=== PATIENT | male | born 1985 ===

== ENCOUNTER 2018-06-09 06:09 | Emergency (ER) | payer SELFPAY ==
--- NOTE | 2018-06-09 06:29 | ED PDOC ---
HPI: Psych/Substance Abuse Time Seen by Provider: 06/09/18 06:12 Chief Complaint (Nursing): Psychiatric Evaluation Chief Complaint (Provider): EDP, Possible Substance Abuse ED Caveat: Uncooperative History Per: EMS, Other ([place] [facility]) History/Exam Limitations: other (uncooperative) Onset/Duration Of Symptoms: Mins (officer captain) Current Symptoms Are (Timing): Still Present Additional Complaint(s): 32 year old male presents to the ED via EMS accompanied by PD for evaluation of possible substance abuse and being an EDP. Patient is uncooperative, yelling in room, and will give no history. Secondary to agitation, four point restraints were applied immediately for safety of patient and staff. MEDICATION was administered to relieve agitation. PMD: unobtainable Past Medical History Reviewed: Unable To Obtain Vital Signs: Last Vital Signs Temp Pulse 142 H 06/09/18 06:26 Resp 22 06/09/18 06:26 BP 113/62 06/09/18 06:26 Pulse Ox 96 06/09/18 06:26 - Family History Family History: States: Unknown Family Hx - Allergies Allergies/Adverse Reactions: Allergies Allergy/AdvReac Type Severity Reaction Status Date / Time No Known Allergies Allergy Verified 06/09/18 08:02 Review of Systems Review Of Systems: ROS cannot be obtained secondary to pt's inabilty to answer questions. Physical Exam - Reviewed Nursing Documentation Reviewed: Yes Vital Signs Reviewed: Yes - Physical Exam Appears: Positive for: No Acute Distress Skin: Positive for: Normal Color Eye Exam: Positive for: Normal appearance ENT: Positive for: Other (extremely dry lips) Neck: Positive for: Normal Cardiovascular/Chest: Positive for: Regular Rate, Rhythm Respiratory: Positive for: Normal Breath Sounds. Negative for: Respiratory Distress Gastrointestinal/Abdominal: Positive for: Normal Exam Extremity: Positive for: Normal ROM Neurologic/Psych: Positive for: Alert, Mood/Affect (odd). Negative for: Oriented - Laboratory Results Result Diagrams: 06/09/18 07:20 06/09/18 07:20 - ECG ECG Rhythm: Positive for: Normal QRS, Normal ST Segment, Sinus Rhythm (normal) O2 Sat by Pulse Oximetry: 96 (RA) Pulse Ox Interpretation: Normal Medical Decision Making Medical Decision Making: Time: 617 Initial Impression: EDP, possible substance abuse Initial Plan: --Acetaminophen --Alcohol serum --BMP --LFT --Drug screen --Salicylate --CBC with differential --Ativan 2mg IM --Haldol 5mg IM --Restraints for safety of patient and ED staff --Urinalysis 0700 Patient care endorsed from this provider to Dr. Hodges pending workup and reevaluation. Scribe Attestation: Documented by Marichuy Rascon acting as a scribe for Loida Dempsey MD. Provider Scribe Attestation: All medical record entries made by the Scribe were at my direction and personally dictated by me. I have reviewed the chart and agree that the record accurately reflects my personal performance of the history, physical exam, medical decision making, and the department course for this patient. I have also personally directed, reviewed, and agree with the discharge instructions and disposition. Disposition - Clinical Impression Clinical Impression: Substance abuse - Patient ED Disposition Is Patient to be Admitted: Transfer of Care - Disposition Referrals: [facility] [Outside] Disposition: Transfer of Care Disposition Time: 07:00 Condition: FAIR Instructions: Polysubstance Abuse Forms: [employer] ([place]) Patient Signed Over To: Yifan Hodges
[2018-06-09] MEDS ORDERED: Sodium Chloride 0.9% 1,000 ML IV STA (07:02)
[2018-06-09 08:05] LABS: BASO % 0.3 % (0.0-2.0); HEMOGLOBIN 14.9 g/dL (12.0-18.0); LYMPH # 0.9 K/uL (1.0-4.3); LYMPH % 7.9 % (20.0-40.0); MEAN CELL VOLUME 85.2 fl (80.0-94.0); MEAN CORPUSCULAR HEMOGLOBIN 28.4 pg (27.0-31.0); MEAN CORPUSCULAR HGB CONC 33.4 g/dL (33.0-37.0); MEAN PLATELET VOLUME 7.7 fl (7.2-11.7); MONO # 0.7 K/uL (0.0-0.8); MONO % 6.1 % (0.0-10.0); NEUT # 9.7 K/uL (1.8-7.0); NEUT % 85.7 % (50.0-75.0); NRBC % 0.2 % (0.0-0.0); PLATELET COUNT 331 K/uL (130-400); RBC 5.23 Mil/uL (4.40-5.90); RED CELL DISTRIBUTION WIDTH 13.4 % (11.5-14.5); WHITE BLOOD COUNT 11.3 K/uL (4.8-10.8)
[2018-06-09 08:22] VITALS: RESP 18
[2018-06-09 08:23] LABS: ALB/GLOB RATIO 1.6 (1.0-2.1); ALBUMIN 5.3 g/dL (3.5-5.0); ALT/SGPT 60 U/L (21-72); AST/SGOT 54 U/L (17-59); BILIRUBIN,DIRECT 0.2 mg/ml (0.0-0.4); BLOOD UREA NITROGEN 9 mg/dl (9-20); CALCIUM 9.6 mg/dL (8.4-10.2); GFR NON-AFRICAN AMERICAN > 60
[2018-06-09 08:24] LABS: ACETAMINOPHEN < 10.0 ug/ml (10.0-30.0); SALICYLATE < 1.0 mg/dl
[2018-06-09 09:39] LABS: URINE BILIRUBIN NEGATIVE (NEGATIVE); URINE BLOOD NEGATIVE (NEGATIVE); URINE CLARITY CLEAR (Clear); URINE COLOR YELLOW (YELLOW); URINE GLUCOSE (UA) NEG (NEGATIVE); URINE LEUKOCYTE ESTERASE NEG Leu/uL (Negative); URINE PROTEIN NEGATIVE (NEGATIVE); URINE UROBILINOGEN 0.2-1.0 mg/dL (0.2-1.0)
[2018-06-09 09:59] LABS: BARBITURATES, UR NEGATIVE (NEGATIVE); BENZODIAZEPINES, UR NEGATIVE (NEGATIVE); OPIATES, UR NEGATIVE (NEGATIVE); PHENCYCLIDINE, UR NEGATIVE (NEGATIVE)
[2018-06-09 10:21] LABS: LYMPHOCYTE 10 % (20-50); MONOCYTE 7 % (0-10); NEUTROPHIL 83 % (42-75); TOTAL CELLS COUNTED 100
[2018-06-09 10:22] LABS: PLATELET ESTIMATE NORMAL (NORMAL)
--- NOTE | 2018-06-09 11:00 | ED PDOC ---
- Laboratory Results Result Diagrams: 06/09/18 07:20 06/09/18 07:20 - ECG O2 Sat by Pulse Oximetry: 99 - Progress Re-evaluation Time: 10:56 Condition: Improved (Awake alert no SI/HI) Disposition - Clinical Impression Clinical Impression: Substance abuse - POA Present On Arrival: None - Disposition Referrals: [facility] [Outside] Disposition: Routine/Home Disposition Time: 10:57 Condition: FAIR Instructions: Polysubstance Abuse Forms: [employer] ([place])
[2018-06-09 11:33] VITALS: BP 122/74; PULSE 96; TEMP 98.2
--- NOTE | 2018-06-09 20:46 | CARD ---
APPROVED REPORT Date of service: 06/09/2018 EKG Measurement Heart [id number] <Conclusion> Sinus tachycardia Otherwise normal ECG
[2018-06-10 23:08] VITALS: O2SAT 96
== END 2018-06-09 11:25 | disposition home or self-care (01) ==
LOC: H.ER 06:09
DX: F19.10 Other psychoactive substance abuse, uncomplicated (principal)
CPT/HCPCS: 80048; 80076; 81003; 85025; 93005; 96360; 96372; 99285; G0480; J1630; J2060; J7030